=== PATIENT | male | born 1950 | race Hispanic/Latino ===

== ENCOUNTER 2017-03-17 07:00 | Day surgery (SDC) | payer MEDICARE ==
[2016-09-29 11:16] VITALS: BMI 31.9
[2017-03-17] MEDS ORDERED: Propofol 10 mg/ml Inj (20 ML) ONE ×3 (08:03→10:27)
[2017-03-17] MEDS ORDERED: Methylene Blue 10 mg/ml (1ml) Inj ONE (08:15)
[2017-03-17] MEDS ORDERED: Sodium Chloride 0.9% 1,000 ML IV SCH (11:00)
--- NOTE | 2017-03-17 11:57 | RAD ---
HISTORY: post colon COMPARISON: No prior. FINDINGS: BOWEL: Normal. No obstruction. No free air. BONES: Normal. OTHER FINDINGS: None. IMPRESSION: No active disease.
[2017-03-17 14:06] VITALS: BP 113/74; RESP 16
[2017-03-17 14:07] VITALS: PULSE 68; TEMP 98.1; O2SAT 98
[2017-03-17] MEDS ORDERED: Simethicone 40 mg/0.6 ml Liquid (30 ml) ONE (19:26)
== END 2017-03-17 12:54 | disposition home or self-care (01) ==
LOC: ENDO 07:00
PROVIDERS: ATTEND Internal Medicine Gastroenterology
DX: D12.2 Benign neoplasm of ascending colon (principal); D12.4 Benign neoplasm of descending colon; D12.3 Benign neoplasm of transverse colon; K63.5 Polyp of colon; K57.30 Diverticulosis of large intestine without perforation or abscess without bleeding; K21.0 Gastro-esophageal reflux disease with esophagitis; K25.9 Gastric ulcer, unspecified as acute or chronic, without hemorrhage or perforation; K31.7 Polyp of stomach and duodenum; K64.8 Other hemorrhoids; K64.4 Residual hemorrhoidal skin tags; K29.50 Unspecified chronic gastritis without bleeding
CPT/HCPCS: 43239; 45381; 45385; 74000; 82948; 88305; 88312; 88342; J0171; J2704; J7030; J7040 ×2; Q9968

== ENCOUNTER 2017-05-25 07:16 | Inpatient (IN) | payer MEDICARE ==
[2017-05-25] MEDS ORDERED: Lactated Ringer's 1,000 ML IV SCH ×2 (09:05→15:08)
[2017-05-25] MEDS ORDERED: HYDROmorphone 0.5 mg/0.5 ml ISec IVP PRN (09:05)
[2017-05-25] MEDS ORDERED: Propofol 10 mg/ml Inj (20 ML) ONE (09:49)
[2017-05-25] MEDS ORDERED: Midazolam 2 MG/2 ML VIAL ONE (09:50)
[2017-05-25] MEDS ORDERED: Rocuronium 10 mg/ml (5 ml) ONE ×2 (09:56→10:35)
[2017-05-25] MEDS ORDERED: metroNIDAZOLE IV 500 mg/100 ml 500 MG/100 ML BAG ONE (10:03)
[2017-05-25] MEDS ORDERED: Sevoflurane - Inhalation Anesthetic Liq (250 ml) ONE (10:29)
[2017-05-25] MEDS ORDERED: Bupivacaine 0.5% Inj(30mL) ONE (10:32)
[2017-05-25] MEDS ORDERED: ePHEDrine 50 mg/ml Inj ONE (10:34)
[2017-05-25] MEDS ORDERED: Phenylephrine 10 mg/ml Inj ONE (13:07)
[2017-05-25] MEDS ORDERED: Neostigmine Methylsulfate 3mg/3ml Syringe IV ONE (13:57)
[2017-05-25] MEDS ORDERED: Glycopyrrolate 0.2 mg/ml (2ml vial) ONE (13:57)
--- NOTE | 2017-05-25 14:49 | PCM.SURG1 ---
<Naveed Tiwari - Last Filed: 05/25/17 14:45> Surgeon's Initial Post Op Note - Surgeon's Notes Surgeon: Светлана Accredited Pharmacy Technician: PGY4, Karishma PGY1 Type of Anesthesia: General Endo Pre-Operative Diagnosis: Tubulovillous Colon Polyp Operative Findings: Pedunculated Tubulovillous Colon Polyp Post-Operative Diagnosis: Tubulovillous Colon Polyp Operation Performed: Lap hand assisted Left Hemicolectomy with partial omentectomy and rigid proctosigmoidoscopy Specimen/Specimens Removed: L colon and partial omentum Estimated Blood Loss: EBL {In ML}: 100 Blood Products Given: N/A Drains Used: Vaibhav (in LLQ) Post-Op Condition: Good Date of Surgery/Procedure: 05/25/17 Time of Surgery/Procedure: 09:50 <Dontrell Sotomayor - Last Filed: 05/25/17 23:52> Surgeon's Initial Post Op Note - Surgeon's Notes Operation Performed: and splenic flexure mobilization
[2017-05-25] MEDS ORDERED: HYDROmorphone 0.5 mg/0.5 ml ISec ONE ×2 (15:04→15:56)
[2017-05-25] MEDS ORDERED: HYDROmorphone 0.5 mg/0.5 ml ISec IVP ONE ×2 (15:04→15:50)
[2017-05-25] MEDS: Insulin Reg-MEDIUM-Coverage SC SCH ×2 (17:30→22:41)
[2017-05-26 00:07] VITALS: BMI 33.4
[2017-05-26] MEDS ORDERED: Pneumococcal 23-Valent Vaccine IM ONE (00:07)
[2017-05-26] MEDS: Insulin Reg-MEDIUM-Coverage SC SCH ×5 (02:12→21:32)
[2017-05-26] MEDS: Morphine 4 mg/ml ISec IVP PRN ×2 (03:15→10:31)
[2017-05-26 06:41] LABS: EOS % 0.3 % (1.5-5.0); GRAN # 4.5 (1.4-6.5); GRAN % 76.8 % (50.0-68.0); HEMATOCRIT 42.8 % (42.0-52.0); LYMPH # 0.8 (1.2-3.4); LYMPH % 12.8 % (22.0-35.0); MEAN CELL VOLUME 84.9 fl (80.0-105.0); MEAN CORPUSCULAR HEMOGLOBIN 28.8 pg (25.0-35.0); MEAN CORPUSCULAR HGB CONC 33.9 g/dl (31.0-37.0); MEAN PLATELET VOLUME 10.5 fl (7.0-11.0); MONO # 0.6 (0.1-0.6); MONO % 10.1 % (1.0-6.0); RED CELL DISTRIBUTION WIDTH 13.4 % (11.5-14.5); WHITE BLOOD COUNT 5.9 10^3/ul (4.5-11.0)
[2017-05-26 07:33] LABS: ALB/GLOB RATIO 1.3 (1.1-1.8); ALKALINE PHOSPHATASE 73 U/L (38-126); ALT/SGPT 46 U/L (7-56); AST/SGOT 28 U/L (17-59); BILIRUBIN,TOTAL 0.9 mg/dL (0.2-1.3); BLOOD UREA NITROGEN 17 mg/dL (7-21); CALCIUM 8.6 mg/dL (8.4-10.5); CARBON DIOXIDE 27 mmol/L (21-33); CHLORIDE 103 mmol/L (95-110); GFR AFRICAN-AMERICAN > 60; GLUCOSE,RANDOM 175 mg/dL (70-110); POTASSIUM 4.3 mmol/L (3.6-5.0); SODIUM 141 mmol/L (132-148); TOTAL PROTEIN 6.2 g/dL (5.8-8.3)
[2017-05-26] MEDS ORDERED: Benzocaine/Menthol (Cepacol) Lozenge MT PRN (08:21)
[2017-05-26] MEDS ORDERED: Oxycodone/Acetaminophen 5/325 mg Tab PO PRN (10:43)
[2017-05-26] MEDS ORDERED: Oxycodone/Acetaminophen 10/325 mg Tab PO PRN (10:43)
--- NOTE | 2017-05-26 11:44 | CP.PCM.PN ---
<KarishmaLeanna - Last Filed: 05/26/17 12:43> Subjective - Date & Time of Evaluation Date of Evaluation: 05/26/17 Time of Evaluation: 11:39 - Subjective Subjective: General Surgery Progress Note for Dr. Sotomayor 67M seen at bedside this morning. Vitals obtained at bedside. Patient found to have high blood pressure. Drain seen at bedside 30cc sanguinous fluid in the drain. Patient tolerated pain well. He had asked for pain medication at 3am (morphine 4mg). Patient tolerating pain well. Patient walking to bathroom. No difficulty ambulating. Patient denies flatus, bm, denies nausea or vomiting with Clear liquid diet. tolerating well. AE hoses in place. Incentive spirometer in place. Patient instructed on use. Patient demonstrates use of incentive spirometer. NGT removed at bedside. Carranza discontinued drain: 30cc since insertion. sanguinous NGT: 170cc, non-cloudy Urine 1200cc, clear, non-cloudy yellow urine Objective - Vital Signs/Intake and Output Vital Signs (last 24 hours): Temp Pulse Resp BP Pulse Ox 98.5 F 93 H 20 151/82 H 94 L 05/26/17 07:30 05/26/17 07:30 05/26/17 07:30 05/26/17 07:30 05/26/17 07:30 Intake and Output: 05/26/17 05/26/17 06:59 18:59 Intake Total 1200 Output Total 1675 Balance -475 - Medications Medications: Current Medications Acetaminophen (Tylenol 325mg Tab) 975 mg PO Q8H [facility] Last Admin: 05/26/17 07:12 Dose: Not Given Atorvastatin Calcium (Lipitor) 20 mg PO DAILY [facility] Last Admin: 05/26/17 10:27 Dose: 20 mg Benzocaine/Menthol (Cepacol Sore Throat) 1 miles MT Q2H PRN PRN Reason: Sore Throat Docusate Sodium (Colace) 100 mg PO BID [facility] Last Admin: 05/26/17 10:26 Dose: 100 mg Heparin Sodium (Porcine) (Heparin) 5,000 units SC Q12 [facility] PRN Reason: Protocol Last Admin: 05/26/17 10:26 Dose: 5,000 units Insulin Human Regular (Humulin R Med) 0 units SC ACHS [facility] PRN Reason: Protocol Last Admin: 05/26/17 02:12 Dose: Not Given Non-Formulary Medication (Amlodipine Besylate/Benazepril [Amlodipine-Benazepril 10-20 Mg]) 1 cap PO QAM [facility] Ondansetron HCl (Zofran Inj) 4 mg IVP Q4 PRN PRN Reason: Nausea/Vomiting Oxycodone/Acetaminophen (Percocet 10/325 Mg Tab) 1 tab PO Q4H PRN PRN Reason: Pain, moderate (4-7) Oxycodone/Acetaminophen (Percocet 5/325 Mg Tab) 2 tab PO Q4H PRN PRN Reason: Pain, severe (8-10) Stop: 05/29/17 10:44 Pantoprazole Sodium (Protonix Inj) 40 mg IVP DAILY [facility] Last Admin: 05/26/17 10:26 Dose: 40 mg - Labs Labs: 05/26/17 06:19 05/26/17 06:19 - Constitutional Appears: Non-toxic - Head Exam Head Exam: NORMAL INSPECTION - Eye Exam Eye Exam: EOMI, Normal appearance - ENT Exam ENT Exam: Mucous Membranes Moist - Neck Exam Neck Exam: Full ROM, Normal Inspection - Respiratory Exam Respiratory Exam: Clear to Ausculation Bilateral, NORMAL BREATHING PATTERN. absent: Accessory Muscle Use, Respiratory Distress - Cardiovascular Exam Cardiovascular Exam: REGULAR RHYTHM, +S1, +S2. absent: Bradycardia, Tachycardia - GI/Abdominal Exam GI & Abdominal Exam: Soft, Tenderness. absent: Guarding, Rigid, Rebound Additional comments: incision sites covered with dressing. C/d/i No erythema, drainage Assessment and Plan - Assessment and Plan (Free Text) Assessment: 67M s/p Left hemicolectomy with partial omentectomy and rigid proctosigmoidoscopy POD#1 Plan: Discontinue LR when patient tolerates diet. encourage ambulation monitor BM monitor Vitals monitor drain output monitor I/Os NGT removed today: 170cc, non bilious, green Carranza discontinued today, 1200cc clear, yellow urine, will follow for voiding Leanna Schwarz DO PGY1 <Dontrell Sotomayor - Last Filed: 05/27/17 23:34> Objective - Vital Signs/Intake and Output Vital Signs (last 24 hours): Temp Pulse Resp BP Pulse Ox 98.7 F 92 H 20 164/91 H 86 L 05/27/17 16:00 05/27/17 16:00 05/27/17 16:00 05/27/17 19:10 05/27/17 16:00 Intake and Output: 05/27/17 05/28/17 18:59 06:59 Intake Total 690 1140 Balance 690 1140 - Medications Medications: Current Medications Acetaminophen (Tylenol 325mg Tab) 975 mg PO Q8H [facility] Last Admin: 05/27/17 08:59 Dose: 975 mg Amlodipine Besylate (Norvasc) 10 mg PO DAILY [facility] Atorvastatin Calcium (Lipitor) 20 mg PO DAILY [facility] Last Admin: 05/27/17 09:03 Dose: 20 mg Benzocaine/Menthol (Cepacol Sore Throat) 1 miles MT Q2H PRN PRN Reason: Sore Throat Docusate Sodium (Colace) 100 mg PO BID [facility] Last Admin: 05/27/17 17:29 Dose: 100 mg Heparin Sodium (Porcine) (Heparin) 5,000 units SC Q12 [facility] PRN Reason: Protocol Last Admin: 05/27/17 21:14 Dose: 5,000 units Insulin Human Regular (Humulin R Med) 0 units SC ACHS [facility] PRN Reason: Protocol Last Admin: 05/27/17 21:17 Dose: Not Given Lisinopril (Zestril) 20 mg PO DAILY [facility] Ondansetron HCl (Zofran Inj) 4 mg IVP Q4 PRN PRN Reason: Nausea/Vomiting Oxycodone/Acetaminophen (Percocet 10/325 Mg Tab) 1 tab PO Q4H PRN PRN Reason: Pain, moderate (4-7) Oxycodone/Acetaminophen (Percocet 5/325 Mg Tab) 2 tab PO Q4H PRN PRN Reason: Pain, severe (8-10) Stop: 05/29/17 10:44 Pantoprazole Sodium (Protonix Inj) 40 mg IVP DAILY [facility] Last Admin: 05/27/17 09:03 Dose: 40 mg - Labs Labs: 05/27/17 07:00 05/27/17 07:00 Assessment and Plan - Assessment and Plan (Free Text) Plan: Patient was seen and examined by me. I agree with assessment and plan as per resident's note.
[2017-05-26] MEDS ORDERED: ceFAZolin 1 gm in NS 1 GM/100 ML BAG IVPB STA (18:00)
--- NOTE | 2017-05-27 03:23 | CON ---
HISTORY OF PRESENT ILLNESS: This is a 67-year-old man I have met in the office in preop clearance for his colon resection, see preop clearance note for details of his medical history. Today, the patient was seen in room #568, bed #2, this Thursday, at midday. He was sitting in bed, surprisingly awake, alert and in good spirits. PHYSICAL EXAMINATION: NEUROLOGICAL: He is moving all extremities. HEENT: Conjunctivae are pink. Mucous membranes are moist. NECK: Supple without masses. LUNGS: Clear. HEART: Regular, not tachycardic. ABDOMEN: Quiet, but soft. It is not tympanitic. There is no guarding or rebound. The patient reported on minimal activity and does borborygmi, but has been out of bed and ambulating. IMPRESSION: He is doing quite well for his first day postoperatively, but not moving bowels yet. Diet, increase as per surgeon. I am sure he will be quick to recover and discharged home. We will follow closely. Presley Mabry MD MTDHerbert
--- NOTE | 2017-05-27 03:59 | OP ---
PROCEDURE DATE: 05/25/2017 PREOPERATIVE DIAGNOSIS: Descending colon sessile polyp. POSTOPERATIVE DIAGNOSIS: Descending colon sessile polyp. PROCEDURES PERFORMED: 1. Laparoscopic hand-assisted left hemicolectomy with anastomosis. 2. Splenic flexure mobilization. 3. Partial omentectomy. SURGEON: Dontrell Sotomayor MD LASTING MACHINE OPERATOR HAND METHOD: Dr. Tiwari. ANESTHESIOLOGIST: Dr. Elise. TYPE OF ANESTHESIA: General endotracheal anesthesia. ESTIMATED BLOOD LOSS: Minimal. SPECIMEN: Left colon and omentum. INDICATIONS: The patient is a 67-year-old male with history of colonoscopy revealing fairly large over 2 cm sessile polyp, which was scheduled for resection as the biopsy showed presence of tubulovillous adenoma. DESCRIPTION OF PROCEDURE: The patient was brought to the operating room, placed on the operating table in supine position. The patient was connected to the EKG, blood pressure, and pulse oximetry monitor. The patient then underwent general endotracheal anesthesia and was prepped and draped in usual sterile fashion. First, a small incision was made inferior to umbilicus after lidocaine was infiltrated then access to the abdominal cavity was obtained with Veress needle and a pneumoperitoneum was created. Next, the 12 mm trocar was inserted through this opening and careful evaluation of abdominal cavity revealed the presence of fairly long redundant sigmoid colon, which was folding on itself right at the junction between descending and sigmoid colon portion. I then proceeded with second 12 mm trocar in the right lower quadrant about 2 cm medial and superior to the right anterior iliac crest and then placed a 5 mm port in the right upper quadrant just below the costal margin. Once this was done, then I proceeded with careful dissection. First tried to separate those overlapping loops of sigmoid colon by clarifying the adhesions between the loops of bowel. Once this was done, I then proceeded carefully mobilizing the mesentery of the rectosigmoid and opened into the retroperitoneum with a takeoff of the inferior mesenteric artery was identified. This was carefully dissected out and the JONELLE was then ligated using Harmonic scalpel. Once this was completed, I then proceeded further with mobilization of that portion of the sigmoid and identified the area of the Sachi ink marking of the polyp. This was fairly proximal to the mid portion of the descending colon and therefore a decision was made to proceed with mobilization of the splenic flexure, which was done carefully by detaching the omentum of the transverse and descending colon and exposing that portion of the colon. The mesentery along the paracolic gutter was incised and the mesentery of that descending colon was mobilized together with the splenic flexure. Once adequate length was obtained, I then proceeded with mobilization of the entire sigmoid colon, once mobilized up in the air, I transected most of the mesentery, and then proceeded with opening the abdominal cavity just below the umbilicus adequately enough for bringing out the specimen. Prior to that, a 5 mm trocar was inserted into the left lower quadrant in order to assist with the dissection in the splenic flexure. Once the specimen was brought out through the abdominal wall opening, careful evaluation revealed the presence of palpable polyp within the colon. The colon was transected about 8-10 cm proximal to that polyp and then distally at about mid sigmoid colon. Next, [id number] anastomosis was created between the two ends of the colon and anastomosis was reinforced with extra stitch in the crotch of the anastomosis using 3-0 silk. Now, careful evaluation of omentum revealed that some of the distal portion of omentum which was quite voluminous revealed some hematoma as well as some ischemia therefore decision was made to proceed with amputation of that distal portion of the omentum, which was sent as a specimen. Now, the abdominal cavity was copiously irrigated and all the irrigant fluid was suctioned out. There was excellent hemostasis. A Vaibhav drain was inserted into the left side of the abdominal cavity and secured to the skin. The abdominal cavity was now closed using #1 PDS in a running fashion for the fascia, 3-0 Vicryl for the subcutaneous tissue, and 4-0 surgical staple for skin. The 12 mm port site on the right lower quadrant was closed within the abdominal cavity using 0 Vicryl stitch. The wounds were now covered with sterile dressing. The patient was awakened, extubated and transferred to the recovery room for further observation. Dontrell Sotomayor MD DEVAN
[2017-05-27 07:36] LABS: EOS % 0.7 % (1.5-5.0); GRAN # 4.28 (1.4-6.5); GRAN % 76.1 % (50.0-68.0); HEMATOCRIT 41.1 % (42.0-52.0); LYMPH # 0.7 (1.2-3.4); LYMPH % 11.6 % (22.0-35.0); MEAN CELL VOLUME 84.7 fl (80.0-105.0); MEAN CORPUSCULAR HEMOGLOBIN 28.9 pg (25.0-35.0); MEAN CORPUSCULAR HGB CONC 34.1 g/dl (31.0-37.0); MEAN PLATELET VOLUME 10.4 fl (7.0-11.0); MONO # 0.7 (0.1-0.6); MONO % 11.6 % (1.0-6.0); RED CELL DISTRIBUTION WIDTH 13.3 % (11.5-14.5); WHITE BLOOD COUNT 5.6 10^3/ul (4.5-11.0)
[2017-05-27 08:11] LABS: ALB/GLOB RATIO 1.5 (1.1-1.8); ALKALINE PHOSPHATASE 71 U/L (38-126); ALT/SGPT 36 U/L (7-56); AST/SGOT 31 U/L (17-59); BILIRUBIN,TOTAL 1.1 mg/dL (0.2-1.3); BLOOD UREA NITROGEN 13 mg/dL (7-21); CALCIUM 8.6 mg/dL (8.4-10.5); CARBON DIOXIDE 26 mmol/L (21-33); CHLORIDE 103 mmol/L (98-107); GFR AFRICAN-AMERICAN > 60; GLUCOSE,RANDOM 184 mg/dL (70-110); POTASSIUM 3.6 mmol/L (3.6-5.0); SODIUM 140 mmol/L (132-148); TOTAL PROTEIN 6.2 g/dL (5.8-8.3)
[2017-05-27 08:26] VITALS: RESP 20
[2017-05-27] MEDS: Insulin Reg-MEDIUM-Coverage SC SCH ×4 (08:58→21:17)
--- NOTE | 2017-05-27 16:22 | CP.PCM.PN ---
<KarishmaLeanna - Last Filed: 05/27/17 16:22> Subjective - Date & Time of Evaluation Date of Evaluation: 05/27/17 Time of Evaluation: 06:00 - Subjective Subjective: General Surgery note for Dr. Sotomayor Patient seen and examined at bedside. Complains of mild abdominal discomfort, but improved from yesterday. Dressings removed at bedside, beta iodine applied. tolerated FLD, denies N/V, tolerating pain. Will advance diet at lunch. Encouraged to ambulate. No BM, admits to flatus. PAtient admits to frustration with lack of BM. Encouraged to ambulate Drain output 57cc, sanguinous Objective - Vital Signs/Intake and Output Vital Signs (last 24 hours): Temp Pulse Resp BP Pulse Ox 99.6 F 97 H 20 141/83 91 L 05/27/17 08:25 05/27/17 08:25 05/27/17 08:25 05/27/17 08:25 05/27/17 08:25 Intake and Output: 05/27/17 05/27/17 06:59 18:59 Intake Total 780 690 Output Total 20 Balance 760 690 - Medications Medications: Current Medications Acetaminophen (Tylenol 325mg Tab) 975 mg PO Q8H [facility] Last Admin: 05/27/17 08:59 Dose: 975 mg Atorvastatin Calcium (Lipitor) 20 mg PO DAILY [facility] Last Admin: 05/27/17 09:03 Dose: 20 mg Benzocaine/Menthol (Cepacol Sore Throat) 1 miles MT Q2H PRN PRN Reason: Sore Throat Docusate Sodium (Colace) 100 mg PO BID [facility] Last Admin: 05/27/17 09:03 Dose: 100 mg Heparin Sodium (Porcine) (Heparin) 5,000 units SC Q12 [facility] PRN Reason: Protocol Last Admin: 05/27/17 09:03 Dose: 5,000 units Insulin Human Regular (Humulin R Med) 0 units SC ACHS [facility] PRN Reason: Protocol Last Admin: 05/27/17 12:13 Dose: 7 units Non-Formulary Medication (Amlodipine Besylate/Benazepril [Amlodipine-Benazepril 10-20 Mg]) 1 cap PO QAM [facility] Last Admin: 05/27/17 09:13 Dose: Not Given Ondansetron HCl (Zofran Inj) 4 mg IVP Q4 PRN PRN Reason: Nausea/Vomiting Oxycodone/Acetaminophen (Percocet 10/325 Mg Tab) 1 tab PO Q4H PRN PRN Reason: Pain, moderate (4-7) Oxycodone/Acetaminophen (Percocet 5/325 Mg Tab) 2 tab PO Q4H PRN PRN Reason: Pain, severe (8-10) Stop: 05/29/17 10:44 Pantoprazole Sodium (Protonix Inj) 40 mg IVP DAILY [facility] Last Admin: 05/27/17 09:03 Dose: 40 mg - Labs Labs: 05/27/17 07:00 05/27/17 07:00 - Constitutional Appears: Non-toxic - Head Exam Head Exam: NORMAL INSPECTION - Eye Exam Eye Exam: EOMI, Normal appearance - ENT Exam ENT Exam: Mucous Membranes Moist - Neck Exam Neck Exam: Full ROM - Respiratory Exam Respiratory Exam: NORMAL BREATHING PATTERN. absent: Accessory Muscle Use, Respiratory Distress - Cardiovascular Exam Cardiovascular Exam: REGULAR RHYTHM, +S1, +S2. absent: Bradycardia, Tachycardia - GI/Abdominal Exam GI & Abdominal Exam: Soft. absent: Tenderness, Diminished Bowel Sounds, Hypoactive Bowel Sounds - Extremities Exam Extremities Exam: Full ROM, Normal Inspection. absent: Pedal Edema - Neurological Exam Neurological Exam: Alert, Awake, Oriented x3 - Psychiatric Exam Psychiatric exam: Normal Affect, Normal Mood - Skin Skin Exam: Dry, Intact, Normal Color, Warm Additional comments: incision sites c/d/i Assessment and Plan - Assessment and Plan (Free Text) Assessment: 67M s/p Left hemicolectomy with partial omentectomy and rigid proctosigmoidoscopy POD#2 Plan: tolerating diet, advance as tolerated encourage ambulation monitor BM, no bm, flatus monitor Vitals monitor drain output monitor I/Os drain output 57cc sanguinous Leanna Eng, DO PGY1 <Dontrell Sotomayor - Last Filed: 05/27/17 23:36> Objective - Vital Signs/Intake and Output Vital Signs (last 24 hours): Temp Pulse Resp BP Pulse Ox 98.7 F 92 H 20 164/91 H 86 L 05/27/17 16:00 05/27/17 16:00 05/27/17 16:00 05/27/17 19:10 05/27/17 16:00 Intake and Output: 05/27/17 05/28/17 18:59 06:59 Intake Total 690 1140 Balance 690 1140 - Medications Medications: Current Medications Acetaminophen (Tylenol 325mg Tab) 975 mg PO Q8H [facility] Last Admin: 05/27/17 08:59 Dose: 975 mg Amlodipine Besylate (Norvasc) 10 mg PO DAILY [facility] Atorvastatin Calcium (Lipitor) 20 mg PO DAILY [facility] Last Admin: 05/27/17 09:03 Dose: 20 mg Benzocaine/Menthol (Cepacol Sore Throat) 1 miles MT Q2H PRN PRN Reason: Sore Throat Docusate Sodium (Colace) 100 mg PO BID [facility] Last Admin: 05/27/17 17:29 Dose: 100 mg Heparin Sodium (Porcine) (Heparin) 5,000 units SC Q12 [facility] PRN Reason: Protocol Last Admin: 05/27/17 21:14 Dose: 5,000 units Insulin Human Regular (Humulin R Med) 0 units SC ACHS [facility] PRN Reason: Protocol Last Admin: 05/27/17 21:17 Dose: Not Given Lisinopril (Zestril) 20 mg PO DAILY [facility] Ondansetron HCl (Zofran Inj) 4 mg IVP Q4 PRN PRN Reason: Nausea/Vomiting Oxycodone/Acetaminophen (Percocet 10/325 Mg Tab) 1 tab PO Q4H PRN PRN Reason: Pain, moderate (4-7) Oxycodone/Acetaminophen (Percocet 5/325 Mg Tab) 2 tab PO Q4H PRN PRN Reason: Pain, severe (8-10) Stop: 05/29/17 10:44 Pantoprazole Sodium (Protonix Inj) 40 mg IVP DAILY [facility] Last Admin: 05/27/17 09:03 Dose: 40 mg - Labs Labs: 05/27/17 07:00 05/27/17 07:00 Assessment and Plan - Assessment and Plan (Free Text) Plan: Patient was seen and examined by me. I agree with assessment and plan as per resident's note.
[2017-05-28 07:33] LABS: BASO # 0.01 K/mm3 (0.0-2.0); BASO % 0.2 % (0.0-3.0); EOS # 0.2 (0.0-0.7); EOS % 3.6 % (1.5-5.0); GRAN # 3.75 (1.4-6.5); GRAN % 67.6 % (50.0-68.0); LYMPH # 1.1 (1.2-3.4); MEAN CELL VOLUME 84.3 fl (80.0-105.0); MEAN CORPUSCULAR HEMOGLOBIN 28.9 pg (25.0-35.0); MEAN CORPUSCULAR HGB CONC 34.3 g/dl (31.0-37.0); MEAN PLATELET VOLUME 10.3 fl (7.0-11.0); MONO # 0.5 (0.1-0.6); MONO % 9.6 % (1.0-6.0); RED CELL DISTRIBUTION WIDTH 13.1 % (11.5-14.5); WHITE BLOOD COUNT 5.5 10^3/ul (4.5-11.0)
[2017-05-28 07:56] LABS: ALB/GLOB RATIO 1.4 (1.1-1.8); ALKALINE PHOSPHATASE 75 U/L (38-126); ALT/SGPT 39 U/L (7-56); AST/SGOT 30 U/L (17-59); BLOOD UREA NITROGEN 13 mg/dL (7-21); CALCIUM 8.9 mg/dL (8.4-10.5); CARBON DIOXIDE 25 mmol/L (21-33); CHLORIDE 102 mmol/L (98-107); GFR AFRICAN-AMERICAN > 60; GLUCOSE,RANDOM 186 mg/dL (70-110); POTASSIUM 3.6 mmol/L (3.6-5.0); SODIUM 140 mmol/L (132-148); TOTAL PROTEIN 6.6 g/dL (5.8-8.3)
[2017-05-28 08:05] VITALS: BP 124/80; PULSE 78; TEMP 99.5; O2SAT 90
[2017-05-28] MEDS: Insulin Reg-MEDIUM-Coverage SC SCH (09:01)
--- NOTE | 2017-05-28 10:44 | CP.PCM.DIS ---
Provider - Provider Date of Admission: 05/25/17 07:16 Attending physician: Dontrell Sotomayor MD Primary care physician: Presley Mabry MD Time Spent in preparation of Discharge (in minutes): 35 Hospital Course - Lab Results Lab Results: Most Recent Lab Values WBC 5.5 10^3/ul (4.5-11.0) 05/28/17 07:25 RBC 4.98 10^6/uL (3.5-6.1) 05/28/17 07:25 Hgb 14.4 g/dL (14.0-18.0) 05/28/17 07:25 Hct 42.0 % (42.0-52.0) 05/28/17 07:25 MCV 84.3 fl (80.0-105.0) 05/28/17 07:25 MCH 28.9 pg (25.0-35.0) 05/28/17 07:25 MCHC 34.3 g/dl (31.0-37.0) 05/28/17 07:25 RDW 13.1 % (11.5-14.5) 05/28/17 07:25 Plt Count 125 10^3/uL (120.0-450.0) 05/28/17 07:25 MPV 10.3 fl (7.0-11.0) 05/28/17 07:25 Gran % 67.6 % (50.0-68.0) 05/28/17 07:25 Lymph % (Auto) 19.0 % (22.0-35.0) L 05/28/17 07:25 [place] % (Auto) 9.6 % (1.0-6.0) H 05/28/17 07:25 Eos % (Auto) 3.6 % (1.5-5.0) 05/28/17 07:25 Baso % (Auto) 0.2 % (0.0-3.0) 05/28/17 07:25 Gran # 3.75 (1.4-6.5) 05/28/17 07:25 Lymph # 1.1 (1.2-3.4) L 05/28/17 07:25 [place]as[place] # 0.5 (0.1-0.6) 05/28/17 07:25 Eos # 0.2 (0.0-0.7) 05/28/17 07:25 Baso # 0.01 K/mm3 (0.0-2.0) 05/28/17 07:25 Sodium 140 mmol/L (132-148) 05/28/17 07:25 Potassium 3.6 mmol/L (3.6-5.0) 05/28/17 07:25 Chloride 102 mmol/L (98-107) 05/28/17 07:25 Carbon Dioxide 25 mmol/L (21-33) 05/28/17 07:25 Anion Gap 17 (10-20) 05/28/17 07:25 BUN 13 mg/dL (7-21) 05/28/17 07:25 Creatinine 0.9 mg/dL (0.5-1.4) 05/28/17 07:25 Est GFR ( Amer) > 60 05/28/17 07:25 Est GFR (Non-Af Amer) > 60 05/28/17 07:25 POC Glucose (mg/dL) 211 mg/dL (65-110) H 05/28/17 07:30 Random Glucose 186 mg/dL (70-110) H 05/28/17 07:25 Calcium 8.9 mg/dL (8.4-10.5) 05/28/17 07:25 Total Bilirubin 1.0 mg/dL (0.2-1.3) 05/28/17 07:25 AST 30 U/L (17-59) 05/28/17 07:25 ALT 39 U/L (7-56) 05/28/17 07:25 Alkaline Phosphatase 75 U/L (38-126) 05/28/17 07:25 Total Protein 6.6 g/dL (5.8-8.3) 05/28/17 07:25 Albumin 3.9 g/dL (3.0-4.8) 05/28/17 07:25 Globulin 2.7 gm/dL 05/28/17 07:25 Albumin/Globulin Ratio 1.4 (1.1-1.8) 05/28/17 07:25 Blood Type A NEGATIVE 05/25/17 08:00 Antibody Screen Negative 05/25/17 08:00 BBK History Checked Patient has bt 05/25/17 08:00 - Hospital Course Hospital Course: Discharge Summary for Dr. Sotomayor Patient admitted for partial colon resection due to large polyps found on colonoscopy by Dr. Jackson. Lap hand assisted Left Hemicolectomy with partial omentectomy and rigid proctosigmoidoscopy was performed 05/25/17. Patient tolerated procedure well. Diet was advanced as tolerated. Incentive spirometer was at bedside post operatively. Patient was instructed on how to use it. Patient was encouraged to get out of bed to chair, ambulate, as tolerated. Patient was seen every morning, diet tolerated. Patient had a bowel movement 05/28. NAEON. Patient had regular diet ordered for today. Patient's drain removed at bedside. Patient's dressings were removed, betadine was swabbed. Drain output 40 cc today, serosanguinous. Patient discharged with instructions to follow up with DR. Sotomayor in 1 week no heavy lifting patient can shower, tegaderm and 4x4 on former leeann site. christina to be removed in 1 week when patient follows up with Dr. Sotomayor at his office. follow up with primary care doctor in 1 week. return to ED if symptoms of abdominal pain, vomiting, incision sites appear to be inflamed, drainage, purulence - Date & Time of H&P Date of H&P: 05/28/17 Time of H&P: 10:48 Discharge Exam - Head Exam Head Exam: NORMAL INSPECTION - Eye Exam Eye Exam: EOMI, Normal appearance - ENT Exam ENT Exam: Mucous Membranes Moist - Respiratory Exam Respiratory Exam: NORMAL BREATHING PATTERN. absent: Accessory Muscle Use, Respiratory Distress - Cardiovascular Exam Cardiovascular Exam: REGULAR RHYTHM. absent: Bradycardia, Tachycardia - GI/Abdominal Exam GI & Abdominal Exam: Soft. absent: Firm, Guarding Additional comments: Christina in place. no erythema, purulence, drainage no rebound tenderness. drain removed. - Extremities Exam Extremities exam: full ROM - Neurological Exam Neurological exam: Alert, Normal Gait, Oriented x3 - Psychiatric Exam Psychiatric exam: Normal Affect, Normal Mood Discharge Plan - Discharge Medications Prescriptions: traMADol [Ultram] 50 mg PO BID #10 tab - Follow Up Plan Condition: GOOD Disposition: HOME/ ROUTINE Patient education suggested?: Yes Instructions: Pain Management in the Elderly (GEN), Bowel Resection (DC), Fall Prevention (DC) Additional Instructions: patient can shower, tegaderm and 4x4 on former leeann site. christina removed in 1 week when patient follows up with Dr. Sotomayor at his office. follow up with primary care doctor in 1 week. return to ED if symptoms of abdominal pain, vomiting, incision sites appear to be inflamed, drainage, purulence Referrals: Presley Mabry MD [Primary Care Provider] -
== END 2017-05-28 14:49 | disposition home or self-care (01) | DRG 331 ==
LOC: SDAINP 07:16 → EDSTATUS 09:15 → 5RNO 16:39
PROVIDERS: ADMIT General Practice; ATTEND General Practice
PROC: 0DTG4ZZ Resection of Left Large Intestine, Percutaneous Endoscopic Approach (ICD-10-PCS; principal; 2017-05-25 09:15)
PROC: 0DBS4ZZ (ICD-10-PCS; 2017-05-25 09:15)
DX: D12.4 Benign neoplasm of descending colon (principal); I10 Essential (primary) hypertension; E11.9 Type 2 diabetes mellitus without complications; E78.5 Hyperlipidemia, unspecified

== ENCOUNTER 2017-08-18 07:13 | Day surgery (SDC) | payer MEDICARE ==
[2017-08-11 11:33] VITALS: BMI 31.9
[2017-08-18] MEDS ORDERED: Propofol 10 mg/ml Inj (20 ML) ONE (11:28)
[2017-08-18] MEDS ORDERED: Sodium Chloride 0.9% 1,000 ML IV SCH (12:15)
[2017-08-18 16:53] VITALS: BP 122/66; PULSE 60; RESP 18; TEMP 97.4; O2SAT 100
== END 2017-08-18 14:00 | disposition home or self-care (01) ==
LOC: ENDO 07:13
PROVIDERS: ATTEND Internal Medicine Gastroenterology
DX: K29.50 Unspecified chronic gastritis without bleeding (principal); Z87.11 Personal history of peptic ulcer disease; I10 Essential (primary) hypertension; E11.9 Type 2 diabetes mellitus without complications; Z79.84 Long term (current) use of oral hypoglycemic drugs
CPT/HCPCS: 43239; 82948; 88305; 88342; J2001; J2704; J7040 ×2

== ENCOUNTER 2018-12-10 10:37 | Day surgery (SDC) | payer MEDICARE ==
[2018-12-02 11:30] VITALS: BMI 33.1
[2018-12-10] MEDS ORDERED: Propofol 10 mg/ml Inj (20 ML) ONE ×2 (13:32→14:23)
[2018-12-10 14:41] VITALS: TEMP 98.3
[2018-12-10] MEDS ORDERED: Sodium Chloride 0.9% 1,000 ML IV SCH (14:45)
[2018-12-10 15:22] VITALS: RESP 16
[2018-12-10 16:20] VITALS: BP 142/84; PULSE 68; O2SAT 96
== END 2018-12-10 16:15 | disposition home or self-care (01) ==
LOC: ENDO 10:37
PROVIDERS: ATTEND Internal Medicine Gastroenterology
DX: K25.9 Gastric ulcer, unspecified as acute or chronic, without hemorrhage or perforation (principal); K21.0 Gastro-esophageal reflux disease with esophagitis; K29.70 Gastritis, unspecified, without bleeding; D12.3 Benign neoplasm of transverse colon; D12.4 Benign neoplasm of descending colon; K62.1 Rectal polyp; K31.89 Other diseases of stomach and duodenum; K30 Functional dyspepsia; I10 Essential (primary) hypertension; E11.9 Type 2 diabetes mellitus without complications; Z79.84 Long term (current) use of oral hypoglycemic drugs; Z86.010 Personal history of colon polyps; Z98.0 Intestinal bypass and anastomosis status
CPT/HCPCS: 43239; 45380; 45385; 88305; 88342; J2704; J7030; J7040